=== PATIENT | male | born 1995 | race Asian ===

== ENCOUNTER 2016-06-18 12:20 | Inpatient (IN) | payer OTHER ==
[~2016-06-18] VITALS: Ht 170.2 cm; Wt 61.0 kg
[2016-06-18 13:21] LABS: BASO % 0.2 %; BASO ABS # 0.02 K/uL (0-0.2); COMPLETE YES; EOS % 0.3 %; HEMATOCRIT 44.1 % (42-52); IG% 0.3 %; LYMPH % 15.3 %; LYMPH ABS # 1.39 K/uL (1.2-3.4); MEAN CELL VOLUME 89.1 fL (80-100); MEAN CORPUSCULAR HEMOGLOBIN 30.9 pg (25-34); MEAN CORPUSCULAR HGB CONC 34.7 g/dl (32-36); MEAN PLATELET VOLUME 9.2 fL (7.4-10.4); MONO % 7.6 %; NEUT % 76.3 %; PLATELET COUNT 308 K/uL (130-400); RED BLOOD COUNT 4.95 M/uL (4.7-6.1); WHITE BLOOD COUNT 9.08 K/uL (4.8-10.8)
[2016-06-18 13:39] LABS: ALT/SGPT 25 U/L (12-78); AST/SGOT 12 U/L (15-37); BLOOD UREA NITROGEN 11 mg/dl (7-18); BUN/CREATININE RATIO 12.5 (10-20); CARBON DIOXIDE 27 mmol/L (21-32); CHLORIDE 105 mmol/L (98-107); CREATININE 0.86 mg/dl (0.60-1.40); GLUCOSE 137 mg/dl (70-99); POTASSIUM 3.7 mmol/L (3.5-5.1); SODIUM 142 mmol/L (136-145)
--- NOTE | 2016-06-18 13:39 | DIAGNOSTIC IMAGING REPORT ---
CT HEAD WITHOUT CONTRAST (CT) CLINICAL HISTORY: Acute change in mental status COMPARISON STUDY: No previous studies for comparison. TECHNIQUE: Axial CT of the brain is performed from the vertex to the skull base. IV contrast was not administered for this examination. CT DOSE: 614.27 mGy.cm FINDINGS: No intra or extra-axial mass lesions are visualized. There is no CT evidence of acute cortical infarction. There is no evidence of midline shift. There is no acute hemorrhage. No calvarial fractures are visualized. There is no evidence of pathologic ventricular dilatation. There is no evidence of acute sinusitis IMPRESSION: Normal noncontrast head CT. Electronically signed by: Oliver Lopez M.D. 06/18/2016 1:38 PM Dictated Date/Time: 06/18/2016 1:36 PM
[2016-06-18 13:45] LABS: ACETAMINOPHEN < 2 ug/ml (10-30)
[2016-06-18 13:49] LABS: INR 1.1 (0.9-1.1); PARTIAL THROMBOPLASTIN RATIO 1.1
[2016-06-18 13:50] LABS: ALKALINE PHOSPHATASE 79 U/L (45-117); THYROID STIMULATING HORMONE 0.853 uIu/ml (0.300-4.500)
[2016-06-18 15:01] LABS: BENZODIAZEPINE, URINE NEG (NEG); COCAINE,URINE NEG (NEG); PHENCYCLIDINE, URINE NEG (NEG)
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
[2016-06-18] MEDS ORDERED: NURSING VERBAL MED ORDER ONE (18:00)
[2016-06-18] MEDS ORDERED: SODIUM CHLORIDE 0.65% NA SOLN 45 ML (OCEAN) PRN (18:15)
[2016-06-18] MEDS ORDERED: BISMUTH SUBSALICYLATE PER ML OMNICELL CHARGE PO PRN (18:15)
[2016-06-18] MEDS ORDERED: MAGNESIUM HYDROXIDE SUSP 30 ML UDC PO PRN (18:15)
[2016-06-18] MEDS ORDERED: hydrOXYzine HCL 25 MG TAB PO PRN ×2 (18:15)
[2016-06-18] MEDS ORDERED: ALUMINUM/MAGNESIUM SUSP 30 ML UDC PO PRN (18:15)
[2016-06-18] MEDS ORDERED: ACETAMINOPHEN 325 MG TAB PO PRN (18:15)
[2016-06-18 18:34] VITALS: O2SAT 96
[2016-06-18 19:52] VITALS: BP 135/70; PULSE 94; TEMP 37.3; BMI 21.1
[2016-06-19] MEDS ORDERED: RISPERIDONE ODT 1MG PO PRN (09:45)
[2016-06-19] MEDS ORDERED: LORAZEPAM 2 MG/ML 1 ML VIAL IM PRN (09:45)
[2016-06-19] MEDS ORDERED: HALOPERIDOL LACTATE 5 MG/ML 1 ML VIAL IM PRN (09:45)
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
[2016-06-20 07:02] VITALS: BP 95/58; PULSE 55; TEMP 36.3
[2016-06-20] MEDS: RISPERIDONE ODT 1MG PO SCH ×3 (11:02→21:54)
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
[2016-06-21 07:02] VITALS: BP_SYST 111; BP_SYST 117; BP_DIAS 67; BP_DIAS 74; PULSE 62; PULSE 69; TEMP 36.4
[2016-06-21 08:10] LABS: CHOLESTEROL/HDL RATIO 1.9
[2016-06-21] MEDS: RISPERIDONE ODT 1MG PO SCH ×2 (08:17→21:12)
--- NOTE | 2016-06-21 16:02 | Psychiatric Progress Notes ---
Progress Note Date of Service Jun 21, 2016. Interval History Geovany Slaughter is a 20-year-old Indian male who currently lives in [place], [place]. Geovany Slaughter was admitted on a 302 involuntary commitment. Patient is admitted from home The patient was brought to the ED by the police. Information provided by the patient is rather limited secondary to his presentation with limited responses and limited engagement, which appear to be secondary to his psychotic symptoms and reliability of information from pt is considered low. Chief Complaint "I need to sleep right now". Subjective Patient was seen & assessed interval progress reviewed with nursing. Patient continues to be paranoid and guarded. He is taking Risperdal. He reports no medication side effects. He slept for 10.75 hours last night and has been in bed most of the day. He responds to questions with suspicion, for example yesterday he told me that he had lived with a host family in [place] before coming to [place] and I asked more about that today he would only respond with "is that important" and then looked straight ahead refusing to discuss further. He has visited by, Enrique Botello, Education and Training Advisor for the [employer] [facility] in [place], [place] today. This Advisor reported that the patient had contacted him on last week and reported that he had lost his passport. The procedure for getting a replacement passport is to go to the [employer] in [facility]. The patient reportedly wanted the advisor to go in his place and patient wasn't satisfied with the explanation that he would need to go himself. The advisor reported that he switched to speaking in Turkish from Croatian to see if the conversation would go better. Advisor reports that the patient continued to speak in Croatian which he felt was unusual. The advisor called the patient back on Monday about the procedure for obtaining a passport and the patient argued that he did not have to go to [facility] and told the advisor that he had called the Embassy in [facility] and was told that the advisor could go in his place. Again the advisor contact the embassy in [facility] and reconfirmed that this was not the case. He texted the patient on Monday but did not receive a response. As far at the advisor is aware, the patient has been in the [place] since February 2015 and is studying economics at [employer]. Patient preferred to walk around the unit during our interview today. When we arrived back at his room he asked if we could go to a different floor. When I explained that we needed to stay on this floor, he said "I need to get some sleep now." Review of Systems patient denies any physical complaints. Sleep Information Total Hours of Sleep: 10.75 Meal Information Percent of Breakfast Consumed: 100 Percent of Lunch Consumed: 100 Percent of Dinner Consumed: 100 Mental Status Exam During interview pt is: cooperative, guarded Appearance: disheveled, other (patient does not have sock around his neck today ) Eye contact is: fair, poor Motor behavior is: steady gait & station Speech: normal in rate, rhythm & volume Affect: flat (thought blocking, with occasional answer that has some degree of coherence ), other (some inappropriate laughing) Mood is: other ("estastic) Thought process: blocking, looseness of associations Thought content: paranoid Suicidal thought are: denied (but with pt stating No to all questions from movie writer at this point in assessment in a manner that was not relabile) Homicidal thoughts are: denied (but with pt stating No to all questions from movie writer at this point in assessment in manner with out relability), present Hallucinations: other (does not answer questions about hallucinations: appears to be responding to internal stimuli at times) Cognition: other (attention and concentration severely impaired) Intelligence estimated to be: consistent with level of education Insight: severely impaired Judgement: severely impaired Impression 20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 Plan (1) Thought disorder 06/19 - pt unable to actively engage in assessment at this time - attempting to obtain collateral, seeking to sought out potential source s of such collateral - risperdal 1mg po prn TID for psychosis/agitation with movie writer attempting to engage pt about this medication option - haldol 5mg im prn q6h severe agitation - ativan 2mg im prn q6h agitation - coordinate aftercare and with any current outpt providers - [facility] - tox screen for bath salts and synthetic cannabinoids pending -presentation has varied from staring and lack of movement for long lengths of time to periods of reported hyperness. if presentation is determined to be more catatonic in nature consider ativan to alleviate, holding for now as assessing. 06/20 Patient continues to be unable to actively engage in assessment. He is paranoid. Risperdal 1 mg bid for psychosis. (Unable to consent patient at this time due to the severity of his symptoms). Metabolic labs for the am. continue [facility] 06/21 - metabolic labs all WNL Patient is tolerating Risperdal without side effects. Will increase hs dose to 2 mg and continue 1 mg in the am. continue [facility] Visit Code E&M Code: 06184 Inventory Assets Strengths: attends college, handling 302 admission without agitation Needs: addressing thought disorder and acute stabilization , outpatient follow up Risk Factors Assessment Male: Yes : No Smoker: No Data Vital Signs Last 24 Hrs: Date Time Temp Pulse Resp B/P Pulse Ox O2 Delivery O2 Flow Rate FiO2 06/21/16 07:02 36.4 69 16 111/67 62 117/74 Meds Administered Last 24 Hrs: Meds Administered (Past 24Hrs) Medications (Trade) Dose Ordered Sig/Baltazar Route Start Time Stop Time Status Last Admin Dose Admin Risperidone (Risperdal M Tab) 1 mg BID PO 06/20/16 09:00 07/20/16 08:59 06/21/16 08:17 1 MG Lab Results Last 24 Hrs: Last 24 Hours Test 06/21/16 07:20 Fasting Glucose 91 mg/dl Triglycerides Level 57 mg/dl Cholesterol Level 154 mg/dl HDL Cholesterol 79 mg/dl LDL Cholesterol, Calculated 64 mg/dl VLDL Cholesterol, Calculated 11 mg/dl Cholesterol/HDL Ratio 1.9
[2016-06-22 06:42] VITALS: BP_SYST 128; BP_SYST 136; BP_DIAS 84; BP_DIAS 96; PULSE 88; PULSE 92; TEMP 37.1
[2016-06-22] MEDS: RISPERIDONE ODT 1MG PO SCH ×2 (08:48→21:40)
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
[2016-06-23 08:14] VITALS: BP_SYST 123; BP_SYST 92; BP_DIAS 56; BP_DIAS 79; PULSE 78; PULSE 90; TEMP 36.7
[2016-06-23] MEDS: RISPERIDONE ODT 1MG PO SCH ×2 (08:53→22:40)
[2016-06-24 07:09] VITALS: BP_SYST 106; BP_SYST 120; BP_DIAS 73; BP_DIAS 76; PULSE 114; PULSE 72; TEMP 36.5
[2016-06-24 07:19] VITALS: Ht 170.2 cm; Wt 61.0 kg
[2016-06-24] MEDS: RISPERIDONE ODT 1MG PO SCH (08:44)
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
[2016-06-24] MEDS ORDERED: BENZTROPINE MESYLATE 1 MG TAB PO PRN (13:30)
[2016-06-24] MEDS ORDERED: RISPERIDONE ODT 1MG PO SCH (22:00)
[2016-06-25 07:04] VITALS: BP_SYST 108; BP_SYST 98; BP_DIAS 62; BP_DIAS 70; PULSE 74; PULSE 91; TEMP 36.5
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
[2016-06-25] MEDS: RISPERIDONE ODT 1MG PO SCH (21:29)
[2016-06-26 06:55] VITALS: BP_SYST 107; BP_SYST 119; BP_DIAS 69; BP_DIAS 78; PULSE 75; PULSE 87; TEMP 36.2
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
[2016-06-26] MEDS: RISPERIDONE ODT 1MG PO SCH (21:11)
[2016-06-27 06:57] VITALS: BP_SYST 106; BP_SYST 109; BP_DIAS 65; BP_DIAS 70; PULSE 58; PULSE 91; TEMP 36.6
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
[2016-06-27] MEDS ORDERED: RISPERIDONE 2 MG TAB PO SCH (22:00)
[2016-06-28 06:58] VITALS: BP_SYST 105; BP_DIAS 68; BP_DIAS 71; PULSE 102; PULSE 96; TEMP 36.5
[2016-06-28] MEDS ORDERED: RISP4TAB2 PO (09:31)
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
== END 2016-06-28 14:45 | disposition home or self-care (01) | DRG 885 ==
LOC: EDBD 12:20 → C.EDA 12:24 → C.MHU 18:04
PROVIDERS: ADMIT Psychiatry & Neurology Psychiatry; ATTEND Psychiatry & Neurology Psychiatry
DX: F29 Unspecified psychosis not due to a substance or known physiological condition (principal)